=== PATIENT | female | born 1960 | race Caucasian/White ===

== ENCOUNTER 2016-08-29 15:43 | Emergency (ER) | payer OTHER ==
[2016-08-29] MEDS ORDERED: SYNTHROID112 MC1 PO (16:18)
[2016-08-29] MEDS ORDERED: ADVIL200 M2 PO (16:19)
[2016-08-29] MEDS ORDERED: KEFLEX500 M4 PO (16:19)
[2016-08-29] MEDS ORDERED: WELLBUTRIN SR150 M2 PO (16:19)
[2016-08-29] MEDS ORDERED: PREDNISONE10 M1 PO (16:45)
== END 2016-08-29 16:55 ==
LOC: EDMED 15:43
DX: T63.441A Toxic effect of venom of bees, accidental (unintentional), initial encounter (principal); E03.9 Hypothyroidism, unspecified